=== PATIENT | male | born 1950 | race Caucasian/White ===

== ENCOUNTER 2017-08-10 11:55 | Day surgery (SDC) | payer OTHER ==
[~2017-08-10] VITALS: Ht 175.3 cm; Wt 81.8 kg
[~2017-08-10 11:55] MED LIST: SILD50TA
[2017-08-10] MEDS ORDERED: IBUP800 (12:35)
== END 2017-08-10 13:58 | disposition home or self-care (01) ==
LOC: ORSCSDS 11:55
PROVIDERS: Internal Medicine Gastroenterology
PROC: 0DBK8ZX Excision of Ascending Colon, Via Natural or Artificial Opening Endoscopic, Diagnostic (ICD-10-PCS; principal; 2017-08-10 13:15)
PROC: 0DBN8ZX Excision of Sigmoid Colon, Via Natural or Artificial Opening Endoscopic, Diagnostic (ICD-10-PCS; principal; 2017-08-10 13:15)
DX: Z12.11 Encounter for screening for malignant neoplasm of colon (principal); D12.2 Benign neoplasm of ascending colon; K62.1 Rectal polyp; K63.5 Polyp of colon; K64.8 Other hemorrhoids; Z87.891 Personal history of nicotine dependence; Z79.899 Other long term (current) drug therapy
CPT/HCPCS: 88305; 93005; 93010; J7120

== ENCOUNTER 2019-04-28 16:56 | Observation (INO) | payer MEDICARE ==
[~2019-04-28] VITALS: Ht 175.3 cm; Wt 79.4 kg
[~2019-04-28 16:56] MED LIST changes: +IBUP800; -SILD50TA; +SILD50TA PO
[2019-04-28 18:26] LABS: BASOPHILS ABSOLUTE AUTO 0.04 K/mm3 (0.00-0.23); BASOPHILS PERCENT AUTO 0 % (0-2); EOSINOPHILS ABSOLUTE AUTO 0.07 K/mm3 (0.00-0.68); EOSINOPHILS PERCENT AUTO 0 % (0-6); Hematocrit 38.8 % (37.0-53.0); Hemoglobin 12.6 g/dL (13.5-17.5); IMMATURE GRAN ABSOLUTE AUTO 0.15 K/mm3 (0.00-0.10); IMMATURE GRAN PERCENT AUTO 1 % (0-1); LYMPHOCYTES ABSOLUTE AUTO 2.43 K/mm3 (0.84-5.20); LYMPHOCYTES PERCENT AUTO 15 % (21-46); MONOCYTES ABSOLUTE AUTO 1.17 K/mm3 (0.16-1.47); MONOCYTES PERCENT AUTO 7 % (4-13); Mean Corpuscular HGB 31.3 pg (26.0-34.0); Mean Corpuscular HGB Conc 32.5 g/dL (31.5-36.5); Mean Corpuscular Volume 96 fL (80-100); Mean Platelet Volume 9.8 fL (9.1-12.4); NEUTROPHILS ABSOLUTE AUTO 12.91 K/mm3 (1.96-9.15); NEUTROPHILS PERCENT AUTO 77 % (41-73); Platelet Count 350 K/mm3 (150-400); RDW Coefficient Variation 12.4 % (11.7-14.2); RDW Standard Deviation 44.2 fL (35.1-46.3); Red Blood Cell Count 4.03 M/mm3 (4.30-5.90); White Blood Cell Count 16.77 K/mm3 (4.00-11.30)
[2019-04-28 18:35] LABS: Alanine Aminotransfer (ALT/SGP 38 U/L (12-78); Albumin/Globulin Ratio 1.2 (0.8-1.8); Alk Phos 78 U/L (50-136); Anion Gap 6 mmol/L (6-16); Aspartate Aminotrans (AST/SGOT 51 U/L (12-37); Bilirubin, Total 0.3 mg/dL (0.1-1.0); Blood Urea Nitrogen 21 mg/dL (8-24); Bun/Creatinine Ratio 15.7 (12.0-20.0); CO2, Blood 28 mmol/L (21-32); Chloride, Blood 104 mmol/L (98-108); Creatinine, Blood 1.34 mg/dL (0.60-1.20); Ethanol (Alcohol), Blood, Med <3 mg/dL; Globulin, Blood 2.4 g/dL (2.2-4.0); Glomerular Filtration Rate 56 (60-); Glucose, Blood 168 mg/dL (70-99); Potassium, Blood 3.6 mmol/L (3.5-5.5); Sodium, Blood 138 mmol/L (136-145); Total Protein, Blood 5.4 g/dL (6.4-8.2)
[2019-04-28 18:40] LABS: International Normalized Ratio 1.24; Prothrombin Time Results 12.9 Sec (9.7-11.5)
[2019-04-28 20:57] LABS: CPK Creatine Kinase 1303 U/L (39-308)
[2019-04-28 22:16] LABS: Hematocrit 33.8 % (37.0-53.0); Mean Corpuscular HGB 31.6 pg (26.0-34.0); Mean Corpuscular HGB Conc 32.5 g/dL (31.5-36.5); Mean Corpuscular Volume 97 fL (80-100); Mean Platelet Volume 9.7 fL (9.1-12.4); Platelet Count 262 K/mm3 (150-400); RDW Coefficient Variation 12.6 % (11.7-14.2); Red Blood Cell Count 3.48 M/mm3 (4.30-5.90); White Blood Cell Count 12.09 K/mm3 (4.00-11.30)
--- NOTE | 2019-04-28 23:06 | NUR ---
PT ARRIVED TO ROOM FROM ER. TRANSFERRED TO BED VIA SLIDER SHEET. DIFFICULTY REMOVING UNDER SHEETS D/T PAIN. MORPHINE GIVEN. FAMILY IN ROOM. VSS WITH SBP 95. HOB FLAT, KNEES ELEVATED, ELBOWS SUPPORTED WITH FOLDED BLANKETS. WARM BLANKET PROVIDED. BRUISING NOTED TO SHOULDERS. SKIN TEAR ON LFA WITH DRIED BLOOD AND GAUZE STUCK TO IT. WILL SOAK OFF AND REDRESS. LOTS OF FAMILY AT BEDSIDE. DR BURNETT HERE TO SEE PT. CALL LIGHT IN REACH.
[2019-04-28 23:09] LABS: BAND PERCENT MAN 18 % (0-8); BASOPHILS PERCENT MAN 0 % (0-2); EOSINOPHILS PERCENT MAN 0 % (0-6); LYMPHOCYTES ABSOLUTE MAN 0.48 K/mm3 (0.84-5.20); LYMPHOCYTES PERCENT MAN 4 % (21-46); MONOCYTES PERCENT MAN 10 % (4-13); NEUTROPHILS ABSOLUTE MAN 10.39 K/mm3 (1.96-9.15); SEG NEUTROPHILS PERCENT MAN 68 % (41-73); TOTAL CELLS COUNTED 100
[2019-04-29 02:41] LABS: BASOPHILS ABSOLUTE AUTO 0.01 K/mm3 (0.00-0.23); BASOPHILS PERCENT AUTO 0 % (0-2); EOSINOPHILS PERCENT AUTO 0 % (0-6); Hematocrit 31.6 % (37.0-53.0); Hemoglobin 10.2 g/dL (13.5-17.5); IMMATURE GRAN ABSOLUTE AUTO 0.03 K/mm3 (0.00-0.10); IMMATURE GRAN PERCENT AUTO 0 % (0-1); LYMPHOCYTES ABSOLUTE AUTO 0.64 K/mm3 (0.84-5.20); LYMPHOCYTES PERCENT AUTO 8 % (21-46); MONOCYTES ABSOLUTE AUTO 1.05 K/mm3 (0.16-1.47); MONOCYTES PERCENT AUTO 14 % (4-13); Mean Corpuscular HGB 30.8 pg (26.0-34.0); Mean Corpuscular HGB Conc 32.3 g/dL (31.5-36.5); Mean Corpuscular Volume 96 fL (80-100); Mean Platelet Volume 9.9 fL (9.1-12.4); NEUTROPHILS ABSOLUTE AUTO 5.94 K/mm3 (1.96-9.15); NEUTROPHILS PERCENT AUTO 78 % (41-73); Platelet Count 234 K/mm3 (150-400); RDW Coefficient Variation 13.1 % (11.7-14.2); RDW Standard Deviation 46.3 fL (35.1-46.3); Red Blood Cell Count 3.31 M/mm3 (4.30-5.90); White Blood Cell Count 7.67 K/mm3 (4.00-11.30)
--- NOTE | 2019-04-29 03:03 | NUR ---
CUT GAUZE AWAY FROM WOUND ON LFA AND SOAKED IN ORDER TO PEEL AWAY WITHOUT DISTURBING WOUND BED. PHOTO CONSENT OBTAINED AND PHOTO TAKEN. TRIPLE ANTIBIOTIC OINTMENT APPLIED WITH STERILE TONGUE DEPRESSOR TO NON-STICK TELFA PADS AND PLACED ON WOUND. WRAPPED WITH KERLEX WITH 'S HELP AND SECURED WITH TAPE. PT MAURICIO WELL.
[2019-04-29 03:19] LABS: Magnesium, Blood 1.8 mg/dL (1.6-2.4)
[2019-04-29 03:23] LABS: Bun/Creatinine Ratio 19.4 (12.0-20.0); Calcium, Blood 7.5 mg/dL (8.5-10.1); Creatinine, Blood 1.34 mg/dL (0.60-1.20); Phosphorus, Blood 3.6 mg/dL (2.5-4.9); Potassium, Blood 4.8 mmol/L (3.5-5.5)
[2019-04-29 06:08] LABS: BASOPHILS ABSOLUTE AUTO 0.01 K/mm3 (0.00-0.23); BASOPHILS PERCENT AUTO 0 % (0-2); EOSINOPHILS PERCENT AUTO 0 % (0-6); Hematocrit 32.4 % (37.0-53.0); Hemoglobin 10.6 g/dL (13.5-17.5); IMMATURE GRAN ABSOLUTE AUTO 0.03 K/mm3 (0.00-0.10); IMMATURE GRAN PERCENT AUTO 0 % (0-1); LYMPHOCYTES ABSOLUTE AUTO 0.98 K/mm3 (0.84-5.20); LYMPHOCYTES PERCENT AUTO 14 % (21-46); MONOCYTES PERCENT AUTO 18 % (4-13); Mean Corpuscular HGB 31.2 pg (26.0-34.0); Mean Corpuscular HGB Conc 32.7 g/dL (31.5-36.5); Mean Corpuscular Volume 95 fL (80-100); Mean Platelet Volume 9.6 fL (9.1-12.4); NEUTROPHILS ABSOLUTE AUTO 4.64 K/mm3 (1.96-9.15); NEUTROPHILS PERCENT AUTO 68 % (41-73); Platelet Count 235 K/mm3 (150-400); RDW Coefficient Variation 13.1 % (11.7-14.2); RDW Standard Deviation 45.5 fL (35.1-46.3); White Blood Cell Count 6.86 K/mm3 (4.00-11.30)
--- NOTE | 2019-04-29 06:24 | NUR ---
SHIFT SUMMARY NO SIG CHANGES SINCE ADMISSION. REMAINED AT BEDSIDE. PT HAS HX OF BACK SURG WITH CHRONIC PAIN UNABLE TO LIE ON BACK NORMALLY - NOW FORCED TO DO SO DUE TO FRACTURES. DENIES PAIN WHEN LYING STILL, HOWEVER REPORTED DEVELOPING "KNOTS IN CENTER OF BACK" RUBBED AFTER MEDS ADMINISTERED. IVF CONT TO INFUSE, IV PATENT. CALL LIGHT IN REACH. WILL CONT TO MONITOR AND REPORT TO DAY SHIFT RN.
--- NOTE | 2019-04-29 10:29 | NUR ---
REPORT TO APURVA RN ON MEDICAL FLOOR, ALL BELONGINGS TO MEDICAL FLOOR WITH PT
--- NOTE | 2019-04-29 12:07 | NUR ---
RECIEVED REPORT FROM ELLE VAUGHN. PT ARRIVED TO THE UNIT VIA BED. PT ORIENTATED TO ROOM. PT AND SON AT BEDSIDE.
--- NOTE | 2019-04-29 16:47 | NUR ---
PT LEFT UNIT VIA [facility] WITH [facility] TO TRANSPORT TO [facility]. PT FAMILY AT BEDSIDE, PERSONAL ITEMS RETURNED.
[2019-04-29 17:51] LABS: Source, Urine Clean Catch
[2019-04-29 18:08] LABS: Appearance, Urine Clear (Clear); Bilirubin, Urine Neg (Neg); Blood, Urine 5+ (Neg); Color, Urine Yellow (P-Yellow); Glucose Qualitative, Urine Neg (Neg); Ketones, Urine Neg (Neg); Leukocyte Esterase, Urine Neg (Neg); Nitrite, Urine Neg (Neg); Protein, Urine 2+ (Neg); Urobilinogen, Urine NORM (Normal)
[2019-04-29 18:29] LABS: Bacteria Many /hpf; Squamous Epithelial Cells Rare /hpf (Few)
[2019-04-29 18:42] LABS: U Amphetamine Screen Not Detected; U Barbituate Screen Not Detected; U Benzodiazapine Screen Not Detected; U Buprenorphine Screen Not Detected; U Cannabinoids Screen Not Detected; U Cocaine Screen Not Detected; U Methadone Screen Not Detected; U Methamphetamine Screen Not Detected; U Opiates Screen DETECTED; U Oxycodone Screen DETECTED; U Phencyclidine Screen Not Detected; U Propoxyphene Screen Not Detected
== END 2019-04-29 16:37 | disposition short-term general hospital (02) ==
LOC: ER 16:56 → PCU 16:57 → MEDS 16:57 → PCU 22:38 → MEDS 04-29 10:34
PROVIDERS: Emergency Medicine; ADMIT Internal Medicine
DX: S42.111A Displaced fracture of body of scapula, right shoulder, initial encounter for closed fracture (principal); S42.001A Fracture of unspecified part of right clavicle, initial encounter for closed fracture; S42.102A Fracture of unspecified part of scapula, left shoulder, initial encounter for closed fracture; T79.6XXA Traumatic ischemia of muscle, initial encounter; N17.9 Acute kidney failure, unspecified; I25.10 Atherosclerotic heart disease of native coronary artery without angina pectoris; D72.829 Elevated white blood cell count, unspecified; X58.XXXA Exposure to other specified factors, initial encounter; Z88.5 Allergy status to narcotic agent; Z88.6 Allergy status to analgesic agent; Z91.013 Allergy to seafood; Z95.5 Presence of coronary angioplasty implant and graft; Z87.891 Personal history of nicotine dependence
CPT/HCPCS: 36415; 71260; 72125; 73030; 73200; 76377; 80048; 80053; 81001; 82550; 83690; 83735; 84100; 85025; 85610; 93005; 93010; 96361; 96374-59; 96375-59; 96376; 99285-25; G0378; G0480; J1170; J1885; J2270; J2405; J7030; J7120; Q9967